=== PATIENT | female | born 1960 | race African-American/Black ===

== ENCOUNTER 2017-02-04 15:43 | Emergency (ER) | payer MEDICARE, OTHER ==
[~2017-02-04 15:43] MED LIST: *UNABLE1; AMOXIL875 PO; APRES25 PO; BIST PO; CHERATUSSIN PO; COUMADIN10 MG PO; COUMADIN7.5 MG PO; COZ50 PO; CYTOXAN50 MG PO; DILT-XR240 MG PO; GENGRAF100 MG PO; K-TABS10 MEQ PO; KLOR-CON M2020 MEQ PO; L40 PO; L80 PO; MIRALAXPKT PO; MYLICON 80 MG T80 MG PO; NICODERM C21 MG/241 TOP; NORCO1 TA2 PO; P10 PO; TAMIFLU PO
== END 2017-02-04 16:41 | disposition home or self-care (01) ==
LOC: ER 15:43
DX: S29.012A Strain of muscle and tendon of back wall of thorax, initial encounter (principal); I10 Essential (primary) hypertension; Z79.52 Long term (current) use of systemic steroids; Z79.899 Other long term (current) drug therapy; X58.XXXA Exposure to other specified factors, initial encounter
CPT/HCPCS: 99283; A9270-GY